=== PATIENT | female | born 1960 ===

== ENCOUNTER 2021-04-24 11:15 | Inpatient (IN) | payer OTHER ==
[~2021-04-24] VITALS: Ht 154.9 cm; Wt 55.3 kg
[2021-04-28] MEDS ORDERED: GEMFIBROZIL600 MG (09:44)
[2021-04-28] MEDS ORDERED: PERCOCET 5-3251 EACH PO (10:33)
[2021-04-28] MEDS ORDERED: COLACE100 MG PO (10:33)
[2021-04-28] MEDS ORDERED: DIAZEPAM5 MG PO (10:33)
[2021-04-28] MEDS ORDERED: MEDROLPACK PO (10:33)
== END 2021-04-29 15:27 | DRG 473 ==
LOC: SURH 04-28 05:05 → O/R 04-28 05:05 → SURH 04-28 07:00 → SURG 04-28 17:12 → SURH 04-28 18:58
PROVIDERS: ADMIT Orthopaedic Surgery Orthopaedic Surgery of the Spine; ATTEND Orthopaedic Surgery Orthopaedic Surgery of the Spine
PROC: 07DS3ZZ Extraction of Vertebral Bone Marrow, Percutaneous Approach (ICD-10-PCS; 2021-04-28)
PROC: 0RG20A0 Fusion of 2 or more Cervical Vertebral Joints with Interbody Fusion Device, Anterior Approach, Anterior Column, Open Approach (ICD-10-PCS; principal; 2021-04-28 07:00)
DX: M50.023 Cervical disc disorder at C6-C7 level with myelopathy (principal)

== ENCOUNTER → 2023-05-11 06:00 | Outpatient (CLI) | payer OTHER ==
[~2023-05-11] VITALS: Ht 157.5 cm; Wt 56.2 kg
[~2023-05-11 06:00] MED LIST: COLACE100 MG PO; DIAZEPAM5 MG PO; GEMFIBROZIL600 MG; MEDROLPACK PO; PERCOCET 5-3251 EACH PO
== END | disposition home or self-care (01) ==
LOC: LAB 06:00 → SURH 05-17 10:15 → EDSTATUS 05-17 10:15
PROVIDERS: ATTEND Orthopaedic Surgery Orthopaedic Surgery of the Spine
DX: Z01.810 Encounter for preprocedural cardiovascular examination (principal); U07.1 COVID-19; Z20.828 Contact with and (suspected) exposure to other viral communicable diseases; M48.07 Spinal stenosis, lumbosacral region; M43.17 Spondylolisthesis, lumbosacral region

== ENCOUNTER 2023-07-14 11:30 | Inpatient (IN) | payer OTHER ==
[~2023-07-14] VITALS: Ht 154.9 cm; Wt 54.4 kg
[2023-07-19] MEDS ORDERED: AMOX-CLAV 875-1 EACH PO (07:12)
[2023-07-19] MEDS ORDERED: MEDROLPACK PO (07:12)
[2023-07-19] MEDS ORDERED: PERCOCET 5-3251 EACH PO (07:12)
[2023-07-19] MEDS ORDERED: NEURONTIN800 MG PO (07:13)
[2023-07-19] MEDS ORDERED: COLACE100 MG PO (07:13)
[2023-07-19] MEDS ORDERED: GABAPENTIN100 M2 PO (07:13)
[2023-07-20 06:50] LABS: MEAN CELL VOLUME 83.9 fL (80.00-100.00); MEAN CORPUSCULAR HGB CONC 33.3 g/dl (32.0-36.0); PLATELET COUNT 207 K/uL (150-450); RED BLOOD COUNT 3.93 M/uL (4.00-6.00); RED CELL DISTRIBUTION WIDTH 13.9 % (11.5-14.5)
[2023-07-20 07:03] LABS: CALCIUM 8.5 mg/dL (8.5-10.1); CREATININE SERUM 0.62 mg/dL (0.55-1.02); GFR 97.86; POTASSIUM 3.37 mEq/L (3.5-5.1)
== END 2023-07-21 17:54 | DRG 455 ==
LOC: SURH 07-19 05:08 → O/R 07-19 05:08 → SURH 07-19 07:00 → PED 07-19 12:08 → SURH 07-19 13:04
PROVIDERS: ADMIT Orthopaedic Surgery Orthopaedic Surgery of the Spine; ATTEND Orthopaedic Surgery Orthopaedic Surgery of the Spine
PROC: 0SG3071 Fusion of Lumbosacral Joint with Autologous Tissue Substitute, Posterior Approach, Posterior Column, Open Approach (ICD-10-PCS; 2023-07-19)
PROC: 0ST40ZZ Resection of Lumbosacral Disc, Open Approach (ICD-10-PCS; 2023-07-19)
PROC: 0QB30ZZ Excision of Left Pelvic Bone, Open Approach (ICD-10-PCS; 2023-07-19)
PROC: 07DR0ZZ Extraction of Iliac Bone Marrow, Open Approach (ICD-10-PCS; 2023-07-19)
PROC: 4A1104G Monitoring of Peripheral Nervous Electrical Activity, Intraoperative, Open Approach (ICD-10-PCS; 2023-07-19)
PROC: 4A12X4Z Monitoring of Cardiac Electrical Activity, External Approach (ICD-10-PCS; 2023-07-19)
PROC: 0SG30A0 Fusion of Lumbosacral Joint with Interbody Fusion Device, Anterior Approach, Anterior Column, Open Approach (ICD-10-PCS; principal; 2023-07-19 07:00)
DX: M48.07 Spinal stenosis, lumbosacral region (principal); M43.17 Spondylolisthesis, lumbosacral region; M54.17 Radiculopathy, lumbosacral region